=== PATIENT | female | born 1990 | race Caucasian/White ===

== ENCOUNTER 2017-04-26 13:29 | Emergency (ER) | payer OTHER ==
[~2017-04-26] VITALS: Ht 157.5 cm; Wt 63.6 kg
[2017-04-26 13:39] VITALS: BP 141/84; PULSE 118; RESP 16; O2SAT 99
[2017-04-26] MEDS ORDERED: Ondansetron 2 mg/mL 2 mL Inj IVPUSH PRN (13:55)
--- NOTE | 2017-04-26 14:20 | ED.REPORT ---
HPI-General Illness Date of Service Apr 26, 2017 ED Provider: Yoel Cartagena DO The pt is a 26 y/o female presenting to the ED due to a L hip injury. She was running around the house in her heels, fell, fell on top of her, and she heard a pop from her L hip. There was no LOC. The pt is very emotional and crying due to the pain. She reports there being a zero percent chance that she is because her has had a vasectomy. Nursing Notes Stated Complaint: POSS LEG BROKEN Chief Complaint: L hip pain Nursing Notes Reviewed: Yes Allergies: Coded Allergies: metoclopramide (Verified Allergy, Intermediate, MUSCLE SPASMS IN FACE AND NECK, 04/26/17) General Time Seen by MD: 13:50 Chief Complaint Other (L hip pain ) Arrived By: Walk-in Sudden in Onset?: Yes Onset Occurred: Just prior to arrival Symptom Duration: Since onset Recent Healthcare: No recent doctor visit, No recent hospitalization Similar Sx Previous: No Past Medical History Past Medical History None reported Past Surgical History None reported Smoking History Smoker Current Status UNK Social History Alcohol Use: "Social" Drug Use: Denies drug use Other Social History: Good social support Ambulatory Status Independent Review of Systems Full Review of Systems Musculoskeletal: Reports: Extremity pain (L hip ) Complete sys rev & neg: except as marked. Physical Exam Vital Signs Vital Signs Date Time Temp Pulse Resp B/P Pulse Ox O2 Delivery O2 Flow Rate FiO2 04/26/17 13:39 36.8 118 16 141/84 99 Room Air Initial VS: Reviewed Head / Eyes: Atraumatic, Normocephalic, PERRL ENT: Mucous membranes moist, Conjunctiva normal, No scleral icterus Neck: Supple, Non-tender, Full range of motion Respiratory: Breath sounds normal, Clear to auscultation, No respiratory distress Abdomen / GI: Soft, Non-tender Skin: Warm, Dry, No cyanosis General/Constitutional: Awake, Alert Distress / Hydration: Positive: Distress moderate Cardiovascular: Heart rate NL, Regular rhythm, Heart sounds NL, Cap refill not delayed, Peripheral circulation NL 2+ dorsalis pedis pulses Lower Extremity / Pelvis / MS: No deformity, Neurologic intact, Vascular intact Left Hip: Positive: Tenderness present... (Severe) Pain w/ axial rotation of L hip Neurologic: Oriented X3, Speech NL, No motor deficits, No sensory deficits Interpretation & Diagnostics PROCEDURE: X-RAY PELVIS W/LAT HIP (LT) ([id number]) IMPRESSION: No trauma found. Dictated by: Tulio Nelson M.D. on 04/26/2017 at 14:49 Approved by: Tulio Nelson M.D. on 04/26/2017 at 14:50 Lab Results Interpretation Test 04/26/17 15:12 Hold Purple Top Tube Received (Received) Hold Blue Top Tube Received (Received) Hold Red Top Tube Received (Received) Hold [place] Top Tube Received (Received) Re-Eval/Medical Decision Med Decision/Clinical Course Significant pain in the pelvis with severely limited range of motion of the leg. She is neurovascularly intact. Initial x-ray of the hip and pelvis is negative for fracture. Currently awaiting x-rays of the full femur. Transferred to [facility] Clar[facility] Time of Eval: 14:50 Re-Evaluation/Progress Note: Rechecked pt who is still in pain. Discussed need for further imaging. Counseled Regarding: Diagnosis, Lab results, Need for follow-up, When/why to return to ED Discharge & Departure Primary Impression: Hip pain Disposition: Home Discharge Condition All VS Reviewed: Yes Condition: Stable Referrals: [facility] Care Transferred to: Dr. Claros Care Transferred at: 15:00 Scribe Attestation Portions of this note were transcribed by Ernie Goodson. I, Dr. Hidalgo personally performed the history, physical exam and medical decision-making; I reviewed and confirmed the accuracy of the information in the transcribed note. copies to: [facility] Yoel Cartagena DO Apr 26, 2017 14:20 Ernie Goodson Apr 26, 2017 14:28
--- NOTE | 2017-04-26 14:52 | DRSVH ---
PROCEDURE: X-RAY PELVIS W/LAT HIP (LT) ([id number]) INDICATIONS: pain post fall TECHNIQUE: AP pelvis with lateral view(s) of the left hip(s). COMPARISON: None. FINDINGS: Bones: No fractures or dislocations. Pelvic ring appears intact. No suspicious bony lesions. Soft tissues: The visualized bowel gas pattern is normal. No suspicious soft tissue calcifications. IMPRESSION: No trauma found. Dictated by: Tulio Nelson M.D. on 04/26/2017 at 14:49 Approved by: Tulio Nelson M.D. on 04/26/2017 at 14:50
--- NOTE | 2017-04-26 15:55 | DRSVH ---
PROCEDURE: X-RAY LEFT FEMUR, TWO VIEWS ([id number]) INDICATIONS: FALL TECHNIQUE: 2 views of the femur were acquired. COMPARISON: None. FINDINGS: Bones: No fractures or dislocations. No suspicious bony lesions. Soft tissues: No suspicious soft tissue calcifications or masses. IMPRESSION: No fracture. If clinical symptoms persist, a repeat examination in 7-10 days is suggeste d for further evaluation. Dictated by: Tae Casillas M.D. on 04/26/2017 at 15:52 Approved by: Tae Casillas M.D. on 04/26/2017 at 15:53
[2017-04-26] MEDS ORDERED: HYDROmorphone 1 mg/mL Inj IVPUSH ONE (16:20)
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
[2017-04-26 16:36] VITALS: BP 121/71; PULSE 84; RESP 19; O2SAT 100
[2017-04-26] MEDS ORDERED: HYDROmorphone 0.5 mg/0.5 mL iSecure Syringe IVPUSH ONE (17:25)
[2017-04-26] MEDS ORDERED: IBUP400T22 PO (17:29)
[2017-04-26] MEDS ORDERED: OXYC-407 PO (17:29)
[2017-04-26 18:06] VITALS: BP 121/71; PULSE 84; RESP 19; O2SAT 100
== END 2017-04-26 18:07 | disposition home or self-care (01) ==
LOC: SED 13:29
DX: M25.552 Pain in left hip (principal); W18.39XA Other fall on same level, initial encounter; Y92.009 Unspecified place in unspecified non-institutional (private) residence as the place of occurrence of the external cause; Y93.02 Activity, running; Y99.8 Other external cause status; Z88.8 Allergy status to other drugs, medicaments and biological substances
CPT/HCPCS: 73501; 73551; 73700; 96374; 96375; 96376; 99285; J1170; J1885; J2270; J2405

== ENCOUNTER 2017-06-20 16:52 | Emergency (ER) | payer OTHER ==
[~2017-06-20] VITALS: Ht 157.5 cm; Wt 59.1 kg
[~2017-06-20 16:52] MED LIST: IBUP400T22 PO; OXYC-407 PO
[2017-06-20 17:08] VITALS: BP 131/73; PULSE 85; RESP 16; O2SAT 99
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
--- NOTE | 2017-06-20 19:39 | DRSVH ---
PROCEDURE: CT CERVICAL SPINE WITHOUT CONTRAST ([id number]) INDICATIONS: midline cervical spine tenderness TECHNIQUE: Noncontrast 3 mm thick sections acquired from the skull base to the T4 level. Sagittal and coronal r eformats were then constructed. For radiation dose reduction, the following was used: automated exp osure control, adjustment of mA and/or kV according to patient size. COMPARISON: None. FINDINGS: Image quality: Excellent. Bones: No fractures or dislocations. Visualized superior ribs are intact. Loss of the normal cervi ana lordosis likely due to patient positioning or muscular spasm. Soft tissues: Prevertebral soft tissues are normal in thickness. No paravertebral hematomas. No ap ical pneumothoraces. IMPRESSION: No acute fractures or dislocations. Dictated by: Tiomteo Livingston M.D. on 06/20/2017 at 19:35 Approved by: Timoteo Livingston M.D. on 06/20/2017 at 19:37
[2017-06-20] MEDS ORDERED: LORazepam 0.5 mg Tablet PO ONE ×2 (19:50→20:45)
[2017-06-20 21:16] VITALS: BP 120/81; PULSE 77; RESP 16; O2SAT 100
== END 2017-06-20 21:18 | disposition home or self-care (01) ==
LOC: SED 16:52
DX: T71.193A Asphyxiation due to mechanical threat to breathing due to other causes, assault, initial encounter (principal); M54.2 Cervicalgia; M79.632 Pain in left forearm; Y08.89XA Assault by other specified means, initial encounter; Y93.89 Activity, other specified; Y99.8 Other external cause status; F17.200 Nicotine dependence, unspecified, uncomplicated; F12.10 Cannabis abuse, uncomplicated
CPT/HCPCS: 72125; 81025; 96372; 99284; J1885

== ENCOUNTER 2017-06-21 09:30 | Emergency (ER) | payer OTHER ==
[~2017-06-21] VITALS: Ht 149.9 cm; Wt 70.5 kg
[2017-06-21 09:32] VITALS: PULSE 72; RESP 18; O2SAT 100
--- NOTE | 2017-06-21 09:41 | ED.REPORT ---
HPI-Psychiatric Illness Date of Service Jun 21, 2017 ED Provider: Steven Maradiaga MD Nursing Notes Stated Complaint: ANXIETY Chief Complaint: General Complaint Allergies: Coded Allergies: metoclopramide (Verified Allergy, Intermediate, MUSCLE SPASMS IN FACE AND NECK, 04/26/17) Scheduled Ibuprofen (Ibuprofen) 400 Mg Tablet 400-800 MG PO TID Scheduled PRN Oxycodone HCl/Acetaminophen 5-325 (Endocet 5-325) 1 Each Tablet 1-2 TABLET PO Q4H PRN PRN For Pain General Time Seen by MD: 09:40 Past Medical History Past Medical History None reported Past Surgical History None reported Smoking History Smoker Current Status UNK Social History Alcohol Use: "Social" Drug Use: Denies drug use Other Social History: Good social support Ambulatory Status Independent Physical Exam Initial Vital Signs Vital Signs (First) Date Time Temp Pulse Resp B/P Pulse Ox O2 Delivery O2 Flow Rate FiO2 06/21/17 09:32 36.6 72 18 100 Room Air Discharge & Departure Referrals: [facility] (PCP) Steven Maradiaga MD Jun 21, 2017 09:41
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
[2017-06-21 09:45] VITALS: BP 164/90; PULSE 119
[2017-06-21] MEDS ORDERED: LORazepam 1 mg Tablet ONE (09:45)
[2017-06-21] MEDS ORDERED: LORazepam 1 mg Tablet PO ONE (14:00)
[2017-06-21 14:09] VITALS: BP 127/89; PULSE 91; O2SAT 98
== END 2017-06-21 14:08 | disposition home or self-care (01) ==
LOC: SED 09:30
DX: S10.93XA Contusion of unspecified part of neck, initial encounter (principal); Y08.89XA Assault by other specified means, initial encounter; Y93.89 Activity, other specified; Y92.89 Other specified places as the place of occurrence of the external cause; Y99.8 Other external cause status; F43.0 Acute stress reaction; Z88.8 Allergy status to other drugs, medicaments and biological substances